=== PATIENT | female | born 2000 | race American Indian/Alaskan Native ===

== ENCOUNTER 2021-08-04 11:39 | Emergency (ER) | payer MEDICAID ==
[2021-08-04 11:51] VITALS: BP 128/81
[2021-08-04] MEDS ORDERED: ACETAMINOPHEN 500 MG TAB PO ONE (12:01)
--- NOTE | 2021-08-04 12:01 | Emergency Department Report ---
ED Lower Extremity HPI - General Chief Complaint: Extremity Problem,Nontraumatic Stated Complaint: LEG PAIN Time Seen by Provider: 08/04/21 11:51 Source: patient Mode of arrival: Ambulatory Limitations: No Limitations - History of Present Illness Initial Comments: Patient is a 20-year-old female that comes to the emergency room complaining of leg pain. She states that it is her left quadricep that hurts. [place] with [place] relatives the other day and since then it has been hurting. She denies any fall or trauma. She is ambulatory and in no acute distress. Patient's only past medical history is mental health. Patient is neurovascularly intact MD Complaint: leg injury -: Sudden, days(s) Place: home Severity: mild Worsens With: weight bearing - Related Data Allergies Allergy/AdvReac Type Severity Reaction Status Date / Time meperidine [From Demerol] Allergy Unknown Verified 08/04/21 11:48 ED Review of Systems ROS: Stated complaint: LEG PAIN Other details as noted in HPI Comment: All other systems reviewed and negative ED Past Medical Hx - Past Medical History Previous Medical History?: Yes Additional medical history: MENTAL HEALTH - Surgical History Past Surgical History?: No - Family History Family history: no significant - Social History Smoking Status: Current Every Day Smoker Substance Use Type: None ED Physical Exam - General Limitations: No Limitations General appearance: alert, in no apparent distress - Head Head exam: Present: atraumatic, normocephalic - Eye Eye exam: Present: normal appearance - ENT ENT exam: Present: mucous membranes moist - Neck Neck exam: Present: normal inspection - Respiratory Respiratory exam: Present: normal lung sounds bilaterally. Absent: respiratory distress - Cardiovascular Cardiovascular Exam: Present: regular rate, normal rhythm. Absent: systolic murmur, diastolic murmur, rubs, gallop - GI/Abdominal GI/Abdominal exam: Present: soft, normal bowel sounds - Extremities Exam Extremities exam: Present: normal inspection - Back Exam Back exam: Present: normal inspection - Neurological Exam Neurological exam: Present: alert, oriented X3 - Psychiatric Psychiatric exam: Present: normal affect, normal mood - Skin Skin exam: Present: warm, dry, intact, normal color. Absent: rash ED Course Vital Signs 08/04/21 08/04/21 11:48 12:06 Temperature 98.3 F Pulse Rate 69 Respiratory 16 16 Rate Blood Pressure 128/81 [Left] O2 Sat by Pulse 100 Oximetry ED Lower Extremity MDM - Medical Decision Making Vital Signs 08/04/21 08/04/21 11:48 12:06 Temperature 98.3 F Pulse Rate 69 Respiratory 16 16 Rate Blood Pressure 128/81 [Left] O2 Sat by Pulse 100 Oximetry Patient is ambulatory, neurovascularly intact. The quad is soft. Her distal perfusion is within normal limits. She has rapid cap refill. She is ambulatory. She has no abrasions or lacerations. Patient given Tylenol for pain. She has not taken anything prior to arrival No indication for x-ray at this time. Patient being discharged home with discharge plan of care including diet, activity, medication follow-up. She verbalizes understanding of plan of care - Differential Diagnosis Contusion, muscle strain Critical care attestation.: If time is entered above; I have spent that time in minutes in the direct care of this critically ill patient, excluding procedure time. ED Disposition Clinical Impression: Pulled muscle Disposition: 01 HOME / SELF CARE / HOMELESS Is pt being admited?: No Does the pt Need Aspirin: No Condition: Stable Instructions: Quadriceps Strain Additional Instructions: WARM BATHS AND COMPRESSES ALTERNATE MOTRIN AND TYLENOL FOR PAIN FOLLOW UP WITH PCP IF PAIN PERSISTS REFERRAL BELOW Referrals: GARLAND VALDIVIA MD [Staff Physician] - 3-5 Days Forms: Work/School Release Form(ED) Time of Disposition: 11:59
== END 2021-08-04 12:41 | disposition home or self-care (01) ==
LOC: ED 11:39
DX: M79.606 Pain in leg, unspecified (principal); F17.200 Nicotine dependence, unspecified, uncomplicated; Z88.6 Allergy status to analgesic agent
CPT/HCPCS: 99282